=== PATIENT | male | born 1980 | race African-American/Black ===

== ENCOUNTER 2017-05-27 22:39 | Emergency (ER) | payer OTHER ==
[~2017-05-27] VITALS: Ht 172.7 cm; Wt 91.6 kg
[2017-05-27 23:03] VITALS: BP 133/76
--- NOTE | 2017-05-27 23:16 | ED GENERAL ADULT ---
See Addendum History of Present Illness General Chief Complaint: General Adult Stated Complaint: PT SWOLLEN GLASS IN HIS BEER Source: patient Exam Limitations: no limitations Vital Signs & Intake/Output Vital Signs & Intake/Output Vital Signs Date Time Temp Pulse Resp B/P B/P Pulse O2 O2 Flow FiO2 Mean Ox Delivery Rate 05/27 2303 97.4 84 18 133/76 97 Room Air ED Intake and Output 05/28 0000 05/27 1200 Intake Total Output Total Balance Patient 202 lb Weight Weight Estimated Measurement Method Allergies Coded Allergies: amoxicillin (Mild, RASH, HIVES 05/27/17) Reconcile Medications Chlorhexidine Gluconate (Periogard) 0.12 % MOUTHWASH 15 ML PO BID MOUTH WASH (Reported) Triage Note: RECEIVED 37 YO MALE C/O HE WAS AT THE [employer] [facility] AND BELIEVES HE MAY HAVE DRANK BEER WITH GLASS IN IT. PT FOUND A PIECE OF GLASS IN HIS MOUTH AFTER DRINKING BEER. PT FORCED HIMSELF TO THROW UP TWICE. Triage Nurses Notes Reviewed? yes HPI: 05/28/17 12:43 AM 37-year-old male presents to the emergency department after drinking a beer that had a piece of glass at the bottom of it. He says it went down unremarkable and he has no symptoms but he noticed glass in the bottom of the beer. He was at the [employer] he denies abdominal pain, or dysphasia. He says he did try to make himself vomit. He is currently asymptomatic Significant past medical history To examination is unremarkable Chest x-ray reveals no evidence of foreign body I spoke to GI who agrees with the plan of care Past History Travel History Traveled to [place] past 21 day No Medical History Any Pertinent Medical History? see below for history Neurological: NONE EENT: NONE Cardiovascular: NONE Respiratory: NONE Gastrointestinal: NONE Hepatic: NONE Renal: NONE Musculoskeletal: NONE Psychiatric: NONE Endocrine: NONE Blood Disorders: NONE Cancer(s): NONE Surgical History Surgical History: none Psychosocial History What is your primary language Zambian Tobacco Use: Never used Family History Hx Contributory? No Review of Systems Review of Systems Constitutional: Reports: no symptoms. EENTM: Reports: no symptoms. Respiratory: Reports: no symptoms. Cardiovascular: Reports: no symptoms. GI: Reports: see HPI. Genitourinary: Reports: no symptoms. Musculoskeletal: Reports: no symptoms. Skin: Reports: no symptoms. Neurological/Psychological: Reports: no symptoms. Hematologic/Endocrine: Reports: no symptoms. Immunologic/Allergic: Reports: no symptoms. Physical Exam Physical Exam General Appearance: well developed/nourished, alert, awake, anxious, mild distress Head: atraumatic, normal appearance Eyes: Bilateral: normal appearance, PERRL, EOMI. Ears, Nose, Throat: normal pharynx, normal ENT inspection Neck: normal inspection, supple Respiratory: normal breath sounds, chest non-tender, no respiratory distress Cardiovascular: regular rate/rhythm Gastrointestinal: soft, non-tender Back: normal range of motion Extremities: normal range of motion Neurologic/Psych: no motor/sensory deficits, awake, alert, oriented x 3 Skin: intact, normal color, warm/dry Core Measures ACS in differential dx? No CVA/TIA Diagnosis: No Sepsis Present: No Sepsis Focused Exam Completed? No Progress Differential Diagnoses I considered the following diagnoses in my evaluation of the patient: [Foreign body ingestion, intestinal perforation, esophageal ulceration] Plan of Care: Follow up with the GI doctor this week Initial ED EKG: none Departure Departure Disposition: HOME OR SELF CARE Condition: Stable Clinical Impression Primary Impression: Foreign body ingestion Referrals: Dandy Gann MD (PCP/Family) Departure Forms: Customer Survey General Discharge Information Comments I spoke with Dr. Wood who agrees with the plan of care Critical Care Note Critical Care Note Critical Care Time: non-applicable
[2017-05-27] MEDS ORDERED: PERIOGARD473 ML PO (23:48)
--- NOTE | 2017-05-28 00:21 | RADIOLOGY REPORT ---
EXAMINATION: XR CHEST CLINICAL INFORMATION: Ate glass. COMPARISON: None TECHNIQUE: 2 views of the chest were obtained. FINDINGS: The lungs are well expanded. There is no focal consolidation, edema, or effusion. No pneumothorax. The cardiomediastinal silhouette is within normal limits. No acute osseous abnormality. No radiopaque foreign body. IMPRESSION: No acute pulmonary finding. No radiopaque foreign body.
== END 2017-05-28 00:55 ==
LOC: ERH 22:39
DX: T18.9XXA Foreign body of alimentary tract, part unspecified, initial encounter (principal)
CPT/HCPCS: 71046

== ENCOUNTER 2017-05-30 13:12 | Emergency (ER) | payer OTHER ==
[~2017-05-30] VITALS: Ht 172.7 cm; Wt 92.5 kg
[~2017-05-30 13:12] MED LIST: PERIOGARD473 ML PO
[2017-05-30 14:35] LABS: ABSOLUTE BASOPHIL COUNT 0 /CUMM (0.0-0.2); ABSOLUTE EOSINOPHIL COUNT 0.2 /CUMM (0.0-0.7); ABSOLUTE GRANULOCYTE CT 2.5 /CUMM (1.4-6.5); ABSOLUTE LYMPH COUNT 1.7 /CUMM (1.2-3.4); ABSOLUTE MONOCYTE COUNT 0.4 /CUMM (0.10-0.60); BASOPHIL % 0.7 % (0.0-2.0); EOSINOPHIL % 4.5 % (0-5); GRANULOCYTE % 51.8 % (42.2-75.2); MEAN CORPUSCULAR HGB 28.1 PG (27.0-31.0); MEAN CORPUSCULAR HGB CONC 33.3 G/DL (33.0-37.0); MEAN CORPUSCULAR VOLUME 84.3 FL (80.0-94.0); MEAN PLATELET VOLUME 8.3 FL (7.4-10.4); PLATELET COUNT 211 /CUMM (130-400); RED BLOOD CELL CT 5.22 /CUMM (4.70-6.10); WHITE BLOOD CELL COUNT 4.8 /CUMM (4.8-10.8)
[2017-05-30 14:37] LABS: PT 11.9 SEC (9.4-12.5); PTT 39 SEC (25-37)
--- NOTE | 2017-05-30 17:23 | ED GI/GU/ABDOMINAL COMPLAINT ---
History of Present Illness General Chief Complaint: General Adult Stated Complaint: SWALLOWED GLASS 05/27, BLOOD IN STOOL Source: patient, old records Exam Limitations: no limitations Vital Signs & Intake/Output Vital Signs & Intake/Output Vital Signs Date Time Temp Pulse Resp B/P B/P Pulse O2 O2 Flow FiO2 Mean Ox Delivery Rate 05/30 1747 98.6 72 16 120/68 98 Room Air 05/30 1338 99.1 94 16 135/75 97 Room Air Allergies Coded Allergies: amoxicillin (Mild, RASH, HIVES 05/27/17) Reconcile Medications Chlorhexidine Gluconate (Periogard) 0.12 % MOUTHWASH 15 ML PO BID MOUTH WASH (Reported) Triage Note: 37 Y/O MALE C/O BLOOD IN STOOL X 1 TODAY. STATES HE WAS EVAL'D TUESDAY AFTER INGESTING PIECES OF GLASS WHILE DRINKING GLASS OF BEER. STATES HE HAD XRAY AND WAS D/[facility] HOME. WAS FINE ALL WEEKEND. HAD 1ST BM TODAY SINCE THIS OCCURRED AND NOTICED BLOOD IN STOOL AND TOILET BOWEL. DENIES PAIN. DENIES OTHER COMPLAINTS. Triage Nurses Notes Reviewed? yes Onset: Abrupt Duration: day(s): (1), gone now, intermittent Timing: single episode today Activities at Onset: bowel movement Prior Abdominal Problems: none Past Sexual History: Unobtainable at this time No Modifying Factors: none HPI: 37-year-old male with no past medical history presents for evaluation of blood in his stool. Patient states that 3 days ago he noticed that while he was drinking a beer that there were small pieces of glass in the cup and he has swallowed some of the glass. He was evaluated here had negative x-rays was told to follow up with GI. Patient states that today he had his first bowel movement since swallowing the glass he noted that there was blood on the toilet paper. He denies any pain during the bowel movement no abdominal pain and lightheadedness dizziness. No blood thinners. No melena. He has not yet followed up with GI. He's never had this before. He denies being constipated no diarrhea no nausea vomiting. He had a single episode of blood on the toilet paper. Contrary to triage note there was no blood in the toilet bowl. Past History Travel History Traveled to [place] past 21 day No Medical History Any Pertinent Medical History? see below for history Neurological: NONE EENT: NONE Cardiovascular: NONE Respiratory: NONE Gastrointestinal: NONE Hepatic: NONE Renal: NONE Musculoskeletal: NONE Psychiatric: NONE Endocrine: NONE Blood Disorders: NONE Cancer(s): NONE Surgical History Surgical History: none Psychosocial History What is your primary language Maori Tobacco Use: Never used Family History Hx Contributory? No Review of Systems Review of Systems Constitutional: Reports: no symptoms. EENTM: Reports: no symptoms. Respiratory: Reports: no symptoms. Cardiovascular: Reports: no symptoms. GI: Reports: bloody stool, changes in stool. Genitourinary: Reports: no symptoms. Musculoskeletal: Reports: no symptoms. Skin: Reports: no symptoms. Neurological/Psychological: Reports: no symptoms. Hematologic/Endocrine: Reports: no symptoms. Immunologic/Allergic: Reports: no symptoms. All Other Systems: Reviewed and Negative Physical Exam Physical Exam General Appearance: well developed/nourished, no apparent distress, alert, awake Head: atraumatic, normal appearance Eyes: Bilateral: normal appearance, PERRL, EOMI. Ears, Nose, Throat, Mouth: hearing grossly normal, moist mucous membrane Neck: normal inspection, supple, full range of motion Respiratory: normal breath sounds, chest non-tender, no respiratory distress, lungs clear Cardiovascular: regular rate/rhythm, normal peripheral pulses Peripheral Pulses: 2+ radial (R), 2+ radial (L) Gastrointestinal: normal bowel sounds, soft, non-tender, no organomegaly Rectal: normal inspection, normal rectal tone, heme negative stool Back: normal inspection, normal range of motion Extremities: normal range of motion Neurologic/Psych: no motor/sensory deficits, awake, alert, oriented x 3, normal gait Skin: intact, normal color, warm/dry Core Measures ACS in differential dx? No Sepsis Present: No Sepsis Focused Exam Completed? No Progress Differential Diagnosis: bowel obstruction, colon cancer, diverticulitis, gastritis, Jacquelyn-Marielos tear, perforated viscous, glass foreign body, upper GI bleed, lower GI bleed, hemorrhoids, AVM Plan of Care: Orders Procedure Date/time Status MISTAKE 05/30 1403 Active URINALYSIS 05/30 1403 Complete PARTIAL THROMBOPLASTIN TIME 05/30 1403 Complete PROTHROMBIN TIME 05/30 1403 Complete COMPREHENSIVE METABOLIC PANEL 05/30 140 Complete CBC WITHOUT DIFFERENTIAL 05/30 1402 Complete Laboratory Tests 05/30/17 1428: Urine Color YEL, Urine Clarity CLEAR, Urine pH 6.5, Ur Specific [place] 1.025, Urine Protein NEG, Urine Ketones NEG, Urine Nitrite NEG, Urine Bilirubin NEG, Urine Urobilinogen 1.0, Ur Leukocyte Esterase NEG, Ur Microscopic EXAM NOT REQUIRED, Urine Hemoglobin NEG, Urine Glucose NEG 05/30/17 1421: Anion Gap 13, Estimated GFR > 60, BUN/Creatinine Ratio 12.0, Glucose 133 H, Calcium 9.6, Total Bilirubin 0.9, AST 21, ALT 28, Alkaline Phosphatase 71, Total Protein 8.3 H, Albumin 4.7, Globulin 3.6, Albumin/Globulin Ratio 1.3, PT 11.9, INR 1.09, APTT 39 H, CBC w Diff NO MAN DIFF REQ, RBC 5.22, MCV 84.3, MCH 28.1, MCHC 33.3, RDW 13.0, MPV 8.3, Gran % 51.8, Lymphocytes % 35.5, Monocytes % 7.5, Eosinophils % 4.5, Basophils % 0.7, Absolute Granulocytes 2.5, Absolute Lymphocytes 1.7, Absolute Monocytes 0.4, Absolute Eosinophils 0.2, Absolute Basophils 0 Patient seen and evaluated. He is here after swallowing glass 3 days ago he had his first bowel movement since and noted blood on the toilet paper. Patient has pictures of the bowel movement in the toilet and the toilet paper. There appears to be a small amount of bright red blood mixed with the stool on the toilet paper. There does not appear to be any bright red blood in the toilet bowl no melena. Patient denies any abdominal pain he feels well. He had no pain during the bowel movement. He does not take blood thinners. His abdomen is soft and nontender vital signs are stable. Basic blood work was obtained does not show any significant changes. A CT scan of the chest and pelvis was obtained does not show any foreign bodies or evidence of perforation/free air. Patient was instructed to make a follow point with a GI doctor as soon as possible. He was referred to Dr. Wood previously. Dr. Wood is aware of the case from the previous ER visit. Stressed return precautions in detail. Advised patient to return immediately with increasing bleeding, melena, dizziness/lightheadedness, abdominal pain or any other concerns. Patient agrees the plan Diagnostic Imaging: Viewed by Me: CT Scan. Discussed w/RAD: CT Scan. Radiology Impression: PATIENT: LORRAINE URIARTE PRESENT AGE: 37 PATIENT ACCOUNT NO: [id number] : 80 LOCATION: [facility] ORDERING PHYSICIAN: Marcos ALTAMIRANO SERVICE DATE: 05/30/17 EXAM TYPE: CAT - CT ABD & PELVIS W/O IV CONTRAS; CT CHEST WO IV CONTRAST EXAMINATION: CT CHEST WITHOUT IV CONTRAST CT ABDOMEN AND PELVIS WITHOUT IV CONTRAST CLINICAL INFORMATION: 37-year-old male with history of ingestion of glass, now with rectal bleeding. COMPARISON: None TECHNIQUE: Noncontrast multidetector CT imaging examination of the chest, abdomen and pelvis was performed. Axial images are displayed at 0.625 mm and 5 mm slice thickness. Coronal and sagittal reformatted images were generated at the technologist's workstation and submitted for review. DLP: 594 mGy-cm FINDINGS: CHEST - LUNGS and PLEURA: Trachea and central airways are widely patent and normal in caliber. No pulmonary edema, focal consolidation, pleural effusion or pneumothorax. There are few linear, hazy opacities of atelectasis in each lung. MEDIASTINUM: Cardiac chambers, thoracic aorta and pulmonary arteries are normal in caliber. No pericardial effusion. The esophagus has normal wall thickness and there are no radiopaque foreign bodies within the lumen of the esophagus. Thyroid gland is unremarkable. No mediastinal mass. LYMPHATICS: No pathologic sized axillary, hilar or mediastinal lymph nodes. CHEST WALL/BONES: The bones of the thorax are intact. Thoracic vertebra have normal height and alignment. ABDOMEN AND PELVIS - HEPATOBILIARY: Liver has normal size, contour and attenuation. Gallbladder is normal. PANCREAS: Normal. SPLEEN: Normal. ADRENAL GLANDS: Normal. KIDNEYS, URETERS, BLADDER: Normal. No evidence of nephrolithiasis or hydronephrosis. GI TRACT AND PERITONEUM: Stomach is unremarkable. Loops of bowel are normal in caliber. No focal bowel wall thickening or mesenteric fat stranding. The appendix is normal. No evidence of acute inflammation or obstruction along the gastrointestinal tract. There are no radiopaque foreign bodies identified within the lumen of the small or large bowel. No ascites, pneumoperitoneum or hemoperitoneum. ABDOMINAL WALL: Small fat-containing umbilical hernia. VASCULAR: Abdominal aorta is normal in caliber. LYMPH NODES: Normal. PELVIC VISCERA: Normal. OSSEOUS STRUCTURES: The lumbar vertebra have normal height and alignment. Pelvic bones and proximal femurs are intact. The focal area of cortical flattening of the anterior aspect of the right femoral head could be sequela of remote trauma. There are enthesophytes of the ischial tuberosities. IMPRESSION: 1. There are no radiopaque foreign bodies identified in the chest, abdomen or pelvis. 2. No acute imaging findings along the gastrointestinal tract. No evidence of focal bowel wall thickening or pneumoperitoneum. DICTATED BY: Flex Phoenix MD DATE/TIME DICTATED:05/30/171738 RN PEDIATRIC: RANJAN DATE/TIME TRANSCRIBED:05/30/171738 CONFIDENTIAL, DO NOT COPY WITHOUT APPROPRIATE AUTHORIZATION. Initial ED EKG: none Departure Departure Disposition: HOME OR SELF CARE Condition: Stable Clinical Impression Primary Impression: Rectal bleeding Referrals: Dandy Gann MD (PCP/Family) Montez Wood MD Additional Instructions: Make a follow-up appointment with Dr. Wood bench jeweler for this week. Monitor symptoms closely if you have abdominal pain, large amounts of bright red blood in her stool, blood clots in YOUr stool, dizziness, lightheadedness or any other concerns return immediately. Departure Forms: Customer Survey General Discharge Information
[2017-05-30 17:47] VITALS: BP 120/68
--- NOTE | 2017-05-30 17:52 | CT SCAN REPORT ---
EXAMINATION: CT CHEST WITHOUT IV CONTRAST CT ABDOMEN AND PELVIS WITHOUT IV CONTRAST CLINICAL INFORMATION: 37-year-old male with history of ingestion of glass, now with rectal bleeding. COMPARISON: None TECHNIQUE: Noncontrast multidetector CT imaging examination of the chest, abdomen and pelvis was performed. Axial images are displayed at 0.625 mm and 5 mm slice thickness. Coronal and sagittal reformatted images were generated at the technologist's workstation and submitted for review. DLP: 594 mGy-cm FINDINGS: CHEST - LUNGS and PLEURA: Trachea and central airways are widely patent and normal in caliber. No pulmonary edema, focal consolidation, pleural effusion or pneumothorax. There are few linear, hazy opacities of atelectasis in each lung. MEDIASTINUM: Cardiac chambers, thoracic aorta and pulmonary arteries are normal in caliber. No pericardial effusion. The esophagus has normal wall thickness and there are no radiopaque foreign bodies within the lumen of the esophagus. Thyroid gland is unremarkable. No mediastinal mass. LYMPHATICS: No pathologic sized axillary, hilar or mediastinal lymph nodes. CHEST WALL/BONES: The bones of the thorax are intact. Thoracic vertebra have normal height and alignment. ABDOMEN AND PELVIS - HEPATOBILIARY: Liver has normal size, contour and attenuation. Gallbladder is normal. PANCREAS: Normal. SPLEEN: Normal. ADRENAL GLANDS: Normal. KIDNEYS, URETERS, BLADDER: Normal. No evidence of nephrolithiasis or hydronephrosis. GI TRACT AND PERITONEUM: Stomach is unremarkable. Loops of bowel are normal in caliber. No focal bowel wall thickening or mesenteric fat stranding. The appendix is normal. No evidence of acute inflammation or obstruction along the gastrointestinal tract. There are no radiopaque foreign bodies identified within the lumen of the small or large bowel. No ascites, pneumoperitoneum or hemoperitoneum. ABDOMINAL WALL: Small fat-containing umbilical hernia. VASCULAR: Abdominal aorta is normal in caliber. LYMPH NODES: Normal. PELVIC VISCERA: Normal. OSSEOUS STRUCTURES: The lumbar vertebra have normal height and alignment. Pelvic bones and proximal femurs are intact. The focal area of cortical flattening of the anterior aspect of the right femoral head could be sequela of remote trauma. There are enthesophytes of the ischial tuberosities. IMPRESSION: 1. There are no radiopaque foreign bodies identified in the chest, abdomen or pelvis. 2. No acute imaging findings along the gastrointestinal tract. No evidence of focal bowel wall thickening or pneumoperitoneum.
== END 2017-05-30 18:23 ==
LOC: ERH 13:12
PROVIDERS: Physician Assistant Medical
DX: K62.5 Hemorrhage of anus and rectum (principal)
CPT/HCPCS: 74176; 81003

== ENCOUNTER 2017-09-23 16:48 | Emergency (ER) | payer OTHER ==
[2017-09-23 16:50] VITALS: BP 129/67
[2017-09-23] MEDS ORDERED: LIDODERM1 EACH TOP (17:40)
--- NOTE | 2017-09-23 17:43 | ED GENERAL ADULT ---
History of Present Illness General Chief Complaint: Neck/Upper Back Pain/Injury Stated Complaint: UPPER BACK PAIN, RADIATING TO ARM PAIN Source: patient Exam Limitations: no limitations Vital Signs & Intake/Output Vital Signs & Intake/Output Vital Signs Date Time Temp Pulse Resp B/P B/P Pulse O2 O2 Flow FiO2 Mean Ox Delivery Rate 09/23 1650 98.0 77 18 129/67 98 Room Air Allergies Coded Allergies: amoxicillin (Mild, RASH, HIVES 05/27/17) Reconcile Medications Chlorhexidine Gluconate (Periogard) 0.12 % MOUTHWASH 15 ML PO BID MOUTH WASH (Reported) Lidocaine (Lidoderm) 5 % ADH..PATCH 1 PAT TOP DAILY PRN pain may wear up to 12 hours Triage Nurses Notes Reviewed? yes Onset: Gradual Duration: day(s): Timing: constant HPI: 37 y/o otherwise healthy male presenting with back pain x5 days. Reports gradual onset of right upper back pain that is worse with movement. Began after mowing the lawn. Endorses intermittent paresthesias to the RUE. No numbness. Has been using 800mg ibuprofen and naproxen with mild relief. Denies trauma to the area. Denies fevers, IVDU, saddle anesthesias, urinary/bowel incontinence/retention. (Medina Cordon) Past History Travel History Traveled to [place] past 21 day No Medical History Any Pertinent Medical History? none Neurological: NONE EENT: NONE Cardiovascular: NONE Respiratory: NONE Gastrointestinal: NONE Hepatic: NONE Renal: NONE Musculoskeletal: NONE Psychiatric: NONE Endocrine: NONE Blood Disorders: NONE Cancer(s): NONE Surgical History Surgical History: none Psychosocial History What is your primary language Ecuadorean Family History Hx Contributory? No (Medina Cordon) Review of Systems Review of Systems Constitutional: Reports: no symptoms. EENTM: Reports: no symptoms. Respiratory: Reports: no symptoms. Cardiovascular: Reports: no symptoms. GI: Reports: no symptoms. Genitourinary: Reports: no symptoms. Musculoskeletal: Reports: see HPI. Skin: Reports: no symptoms. Neurological/Psychological: Reports: no symptoms. Hematologic/Endocrine: Reports: no symptoms. Immunologic/Allergic: Reports: no symptoms. All Other Systems: Reviewed and Negative (Medina Cordon) Physical Exam Physical Exam General Appearance: well developed/nourished, no apparent distress, alert, awake , comfortable Head: atraumatic, normal appearance Eyes: Bilateral: normal appearance. Neck: normal inspection, full range of motion, no midline tenderness Respiratory: normal breath sounds, lungs clear Cardiovascular: regular rate/rhythm Gastrointestinal: soft, non-tender Back: normal inspection, normal range of motion, no vertebral tenderness, +TTP over right upper thoracic muscles Extremities: normal inspection, BLE's are NV intact, able to bear weight and ambulate with a steady gait, reflexes 2+ Neurologic/Psych: awake, alert, oriented x 3, normal gait, normal mood/affect Skin: intact, normal color, warm/dry Core Measures ACS in differential dx? No CVA/TIA Diagnosis: No Sepsis Present: No Sepsis Focused Exam Completed? No (Medina Cordon) Progress Differential Diagnoses I considered the following diagnoses in my evaluation of the patient: [Likely MSK strain vs muscle spasm, low concern for vertebral fx vs cauda equina vs epidural abscess] Plan of Care: Current Medications Sig/Indy Start time Last Medication Dose Stop Time Status Admin Ketorolac 60 MG ONCE ONE 09/23 1729 UNVr 09/23 Tromethamine 09/23 1731 1745 (Toradol) Lidocaine 1 PAT ONCE ONE 09/23 1729 UNVr 09/23 (Lidoderm) 09/23 1731 1736 Methylprednisolone 125 MG ONCE ONE 09/23 1729 UNVr 09/23 (Solu Medrol) 09/23 1731 1745 Reports good pain relief after toradol, solumedrol, and lidoderm patch. Counseled on supportive care, will f/u with PMD. Given strict return precautions. Initial ED EKG: none (Medina Cordon) Departure Departure Disposition: HOME OR SELF CARE Condition: Stable Clinical Impression Primary Impression: Back pain Referrals: Dandy Gann MD (PCP/Family) Additional Instructions: Continue using naproxen as needed for pain. Add lidoderm patches to your regimen for additional pain relief. Apply warm compresses followed by gentle stretching 2-3 times daily. Follow up with your primary care provider for re-evaluation. Return to the emergency department for any new or worsening symptoms. Departure Forms: Customer Survey General Discharge Information Prescriptions: Current Visit Scripts Lidocaine (Lidoderm) 1 PAT TOP DAILY PRN pain #30 PAT may wear up to 12 hours (Medina Cordon) PA/SOILS ANALYST Co-Sign Statement Statement: ED Attending supervision documentation- [] I saw and evaluated the patient. I have also reviewed all the pertinent lab results and diagnostic results. I agree with the findings and the plan of care as documented in the PA's/SOILS ANALYST's documentation. [X] I have reviewed the ED Record and agree with the PA's/SOILS ANALYST's documentation. [] Additions or exceptions (if any) to the PAs/SOILS ANALYST's note and plan are summarized below: [] (Tabitha BELL,Scotty Howe) Critical Care Note Critical Care Note Critical Care Time: non-applicable (Medina Cordon)
== END 2017-09-23 18:34 ==
LOC: ERH 16:48
DX: M54.9 Dorsalgia, unspecified (principal)
CPT/HCPCS: 96372; J1885; J2930